=== PATIENT | male | born 1940 | race Caucasian/White ===

== ENCOUNTER 2020-08-06 11:10 | Day surgery (SDC) | payer MEDICARE ==
[2020-08-01 12:41] LABS: BASOPHILS # (AUTO) 0.1 X10'3 (0-0.2); BASOPHILS % (AUTO) 1.3 % (0-1); EOSINOPHILS # (AUTO) 0.2 X10'3 (0-0.9); EOSINOPHILS % (AUTO) 2.8 % (0-6); HEMATOCRIT 43.1 % (42.0-52.0); HEMOGLOBIN 14.2 g/dl (14.0-17.9); LYMPHOCYTES # (AUTO) 1.6 X10'3 (1.1-4.8); MEAN CORPUSCULAR HEMOGLOBIN 31.3 PG (27.0-31.0); MEAN CORPUSCULAR HGB CONC 32.9 g/dL (33.0-36.5); MEAN CORPUSCULAR VOLUME 95.2 FL (78-98); MONOCYTES # (AUTO) 0.7 X10'3 (0-0.9); MONOCYTES % (AUTO) 9.2 % (2-12); NEUTROPHILS % (AUTO) 65.7 % (42-75); PLATELET COUNT 427 X10'3 (140-440); RED BLOOD COUNT 4.53 X10'6 (4.70-6.10); RED CELL DISTRIBUTION WIDTH 13.5 % (11.5-14.5); WHITE BLOOD COUNT 7.5 X10'3 (4.5-11.0)
[2020-08-01 12:54] LABS: PARTIAL THROMBOPLASTIN TIME 28 SECONDS (22-32)
[2020-08-01 12:55] LABS: ALBUMIN 3.1 G/DL (3.4-5.0); ANION GAP 10 (8-16); BLOOD UREA NITROGEN 17 MG/DL (7-18); BUN/CREATININE RATIO 18.3 (5.4-32.0); CHLORIDE 104 MMOL/L (99-107); CREATININE 0.93 MG/DL (0.60-1.10); GLUCOSE 111 MG/DL (70-104); POTASSIUM 3.8 MMOL/L (3.5-5.1); SODIUM 140 MMOL/L (135-145); TOTAL CARBON DIOXIDE 25.7 MMOL/L (24-32); eGFR 78 ML/MIN
[2020-08-06] VITALS (10 sets, daily range): BP systolic 114–135; BP diastolic 65–79
[~2020-08-06] VITALS: Ht 172.7 cm; Wt 66.3 kg
[2020-08-06] MEDS ORDERED: LIDOcaine/PRILOcaine 5gm cream TP ONE (11:25)
[2020-08-06] MEDS ORDERED: LORazepam 0.5 MG tablet PO PRN (11:25)
[2020-08-06] MEDS ORDERED: diphenhydrAMINE 25mg capsule PO PRN (11:25)
[2020-08-06] MEDS ORDERED: normal saline 1,000 ML IV SCH (11:25)
[2020-08-06] MEDS ORDERED: NITR0.4T51 SL (11:38)
[2020-08-06] MEDS ORDERED: PHEN-824 PO (11:38)
[2020-08-06] MEDS ORDERED: SIMV-42 PO (11:38)
[2020-08-06] MEDS ORDERED: FLO0.4C PO (11:38)
[2020-08-06] MEDS ORDERED: DILT120C94 PO (11:38)
[2020-08-06] MEDS ORDERED: verapamil 2.5 mg/ml inj IV ONE (12:28)
[2020-08-06] MEDS ORDERED: LIDOcaine 1% (10mg/ml)w/preservative injection 20ml MDV ONE (12:29)
[2020-08-06] MEDS ORDERED: heparin 1,000unit/ml 10ml vial 10 ML ONE (12:29)
[2020-08-06] MEDS ORDERED: nitroGLYCERIN-Tridil 50MG/D5W 250 ML IV ONE (12:29)
[2020-08-06] MEDS ORDERED: iohexol 350MG/ML 100ml bottle IV ONE (12:29)
[2020-08-06] MEDS ORDERED: fentaNYL/PF 50MCG/1 ML 2ML syringe ONE (12:53)
[2020-08-06] MEDS ORDERED: midazolam 2 mg/2 ml injection ONE ×2 (12:53→13:11)
[2020-08-06] MEDS ORDERED: proCHLORperazine 10 MG/2 ml inj IV PRN (13:55)
[2020-08-06] MEDS ORDERED: HYDROcodone/acetaminophen 10/325mg tab PO PRN (13:55)
[2020-08-06] MEDS ORDERED: HYDROcodone/acetaminophen 5mg/325mg tablet PO PRN (13:55)
[2020-08-06] MEDS ORDERED: OXAZEpam 15mg capsule PO PRN (13:55)
[2020-08-06] MEDS ORDERED: ondansetron/PF 4mg/2ml inj IV PRN (13:55)
== END 2020-08-06 16:00 | disposition home or self-care (01) ==
LOC: SSTAY O 11:10
PROVIDERS: ATTEND Internal Medicine Interventional Cardiology
DX: R94.39 Abnormal result of other cardiovascular function study (principal); E78.5 Hyperlipidemia, unspecified; R07.9 Chest pain, unspecified; I11.9 Hypertensive heart disease without heart failure; Z79.01 Long term (current) use of anticoagulants; Z79.899 Other long term (current) drug therapy
CPT/HCPCS: 36415; 80048; 85025; 85610; 85730; 93005; 93458; C1760; C1769; C1894; J1644; J2001; J2250; J3010; J7030; Q0163; Q9967; 99152; A4620; A5120; A6258; J3490

== ENCOUNTER 2021-04-21 05:50 | Day surgery (SDC) | payer MEDICARE ==
[2021-04-14 15:51] LABS: BASOPHILS % (AUTO) 0.6 % (0-1); EOSINOPHILS # (AUTO) 0.1 X10'3 (0-0.9); EOSINOPHILS % (AUTO) 1.3 % (0-6); LYMPHOCYTES # (AUTO) 2.3 X10'3 (1.1-4.8); LYMPHOCYTES % (AUTO) 30.2 % (21-51); MEAN CORPUSCULAR HEMOGLOBIN 33.3 PG (27.0-31.0); MEAN CORPUSCULAR VOLUME 97.8 FL (78-98); MEAN PLATELET VOLUME 7.3 FL (7.4-10.4); MONOCYTES # (AUTO) 0.7 X10'3 (0-0.9); MONOCYTES % (AUTO) 8.7 % (2-12); NEUTROPHILS # (AUTO) 4.5 X10'3 (1.8-7.7); NEUTROPHILS % (AUTO) 59.2 % (42-75); PRE OP HEMATOCRIT 46.2 % (42.0-52.0); PRE OP HEMOGLOBIN 15.7 g/dL (14.0-17.9); PRE OP PLATELET COUNT 342 X10'3 (140-440); RED BLOOD COUNT 4.73 X10'6 (4.70-6.10); RED CELL DISTRIBUTION WIDTH 14.1 % (11.5-14.5)
[2021-04-14 16:12] LABS: ALBUMIN 3.3 G/DL (3.4-5.0); ALBUMIN/GLOBULIN RATIO 1.1 (1.1-1.5); ALKALINE PHOSPHATASE 82 IU/L (46-116); BLOOD UREA NITROGEN 28 MG/DL (7-18); CALCIUM 8.7 MG/DL (8.5-10.1); CHLORIDE 107 MMOL/L (99-107); PRE OP ALT 29 U/L (30-65); PRE OP ANION GAP 9 (8-16); PRE OP AST 15 U/L (10-37); PRE OP BILIRUB, TOTAL 0.7 MG/DL (0.0-1.0); PRE OP GLUCOSE 121 MG/DL (70-104); PRE OP SODIUM 142 MMOL/L (135-145); TOTAL CARBON DIOXIDE 25.8 MMOL/L (24-32); TOTAL PROTEIN 6.3 G/DL (6.4-8.2); eGFR 72 ML/MIN
[~2021-04-21] VITALS: Ht 172.7 cm; Wt 66.4 kg
[~2021-04-21 05:50] MED LIST: DILT120C94 PO; NITR0.4T51 SL; SIMV-42 PO; SOLI10TA2 PO; cefazolin/dext.iso 2gm/100ml IV ONE; famotidine 20mg tablet PO ONE; ringers solution, lacted 1,000 ML IV SCH
[2021-04-21 06:00] VITALS: BP 127/64
[2021-04-21] MEDS ORDERED: BUPIVAcaine/PF 2.5mg/ml (0.25%) 10ml vial ONE (06:41)
[2021-04-21] MEDS ORDERED: hydrALAZINE 20mg/ml inj. IV PRN (07:15)
[2021-04-21] MEDS ORDERED: morphine 4 MG/ML inj SYRINge IV PRN (07:15)
[2021-04-21] MEDS ORDERED: ringers solution, lacted 1,000 ML IV SCH (07:15)
[2021-04-21] MEDS ORDERED: morphine 2 MG/ML inj. syringe IV PRN (07:15)
[2021-04-21] MEDS ORDERED: labetalol 20mg/4ml (5mg/ml) syringe IV PRN (07:15)
[2021-04-21] MEDS ORDERED: ondansetron/PF 4mg/2ml inj IV PRN (07:15)
[2021-04-21] MEDS ORDERED: fentaNYL/PF 50MCG/1 ML 2ML syringe IV PRN ×2 (07:15)
[2021-04-21] MEDS ORDERED: LIDOcaine 0.5% (5mg/ml) 50ml vial ONE (07:19)
[2021-04-21] MEDS ORDERED: fentaNYL/PF 50MCG/1 ML 2ML syringe ONE (08:16)
[2021-04-21] MEDS ORDERED: midazolam 1 mg/ML 2ml injection ONE ×2 (08:17)
[2021-04-21 08:57] VITALS: BP 110/72
--- NOTE | 2021-04-21 08:57 | NUR ---
Received from OR via , accompanied by Anesthesiologist DR ROCK and report given by Anesthesiolgist. AWAKENS TO VOICE. VITALS STABLE. DRESSING DI. KEIKO PAIN. FINGERS COOL AND PINK.
[2021-04-21 09:07] VITALS: BP 120/74
[2021-04-21 09:17] VITALS: BP 114/80
[2021-04-21 09:27] VITALS: BP 115/72
--- NOTE | 2021-04-21 09:47 | NUR ---
AWAKE AND ORIENTED. VITALS STABLE. DRESSING DI. KEIKO PAIN. HOME WITH HIS AT THIS TIME.
== END 2021-04-21 09:47 | disposition home or self-care (01) ==
LOC: PAS 05:50
PROVIDERS: ATTEND Orthopaedic Surgery Hand Surgery
DX: G56.01 Carpal tunnel syndrome, right upper limb (principal); Z79.899 Other long term (current) drug therapy; M79.631 Pain in right forearm
CPT/HCPCS: 36415; 64721; 80053; 82948; 85025; 93005; J2001; J2250; J3010; J3490; U0003; U0005; Z7506; Z7512; A4215; J7120

== ENCOUNTER 2021-05-26 05:47 | Day surgery (SDC) | payer MEDICARE ==
[2021-05-19 14:27] LABS: BASOPHILS % (AUTO) 0.4 % (0-1); EOSINOPHILS # (AUTO) 0.1 X10'3 (0-0.9); EOSINOPHILS % (AUTO) 1.8 % (0-6); LYMPHOCYTES # (AUTO) 2.1 X10'3 (1.1-4.8); LYMPHOCYTES % (AUTO) 33.9 % (21-51); MEAN CORPUSCULAR HEMOGLOBIN 32.8 PG (27.0-31.0); MEAN CORPUSCULAR VOLUME 96.5 FL (78-98); MEAN PLATELET VOLUME 7.2 FL (7.4-10.4); MONOCYTES # (AUTO) 0.6 X10'3 (0-0.9); MONOCYTES % (AUTO) 10.3 % (2-12); NEUTROPHILS # (AUTO) 3.4 X10'3 (1.8-7.7); NEUTROPHILS % (AUTO) 53.6 % (42-75); PRE OP HEMATOCRIT 46.9 % (42.0-52.0); PRE OP PLATELET COUNT 365 X10'3 (140-440); RED BLOOD COUNT 4.86 X10'6 (4.70-6.10); RED CELL DISTRIBUTION WIDTH 13.7 % (11.5-14.5)
[2021-05-19 14:37] LABS: ALBUMIN 3.3 G/DL (3.4-5.0); ALBUMIN/GLOBULIN RATIO 1.1 (1.1-1.5); ALKALINE PHOSPHATASE 70 IU/L (46-116); BLOOD UREA NITROGEN 23 MG/DL (7-18); BUN/CREATININE RATIO 24.5 (5.4-32.0); CALCIUM 8.3 MG/DL (8.5-10.1); CHLORIDE 107 MMOL/L (99-107); CREATININE 0.94 MG/DL (0.60-1.10); PRE OP ALT 32 U/L (30-65); PRE OP ANION GAP 9 (8-16); PRE OP AST 12 U/L (10-37); PRE OP BILIRUB, TOTAL 0.5 MG/DL (0.0-1.0); PRE OP GLUCOSE 94 MG/DL (70-104); PRE OP POTASSIUM 3.9 MMOL/L (3.4-5.1); PRE OP SODIUM 140 MMOL/L (135-145); TOTAL CARBON DIOXIDE 23.8 MMOL/L (24-32); TOTAL PROTEIN 6.4 G/DL (6.4-8.2); eGFR 77 ML/MIN
[~2021-05-26] VITALS: Ht 172.7 cm; Wt 66.6 kg
[2021-05-26] VITALS (7 sets, daily range): BP systolic 97–125; BP diastolic 65–85
[~2021-05-26 05:47] MED LIST changes: +ceFAZolin 2gm in dextrose, iso 50 ML IV ONE; -cefazolin/dext.iso 2gm/100ml IV ONE
[2021-05-26] MEDS ORDERED: BUPIVAcaine/PF 2.5 mg/ml (0.25%) 30ml vial ONE (07:06)
[2021-05-26] MEDS ORDERED: LIDOcaine 1% 30ml preserv. free vial ONE (07:20)
[2021-05-26] MEDS ORDERED: midazolam 1 mg/ML 2ml injection ONE (07:56)
[2021-05-26] MEDS ORDERED: fentaNYL/PF 50MCG/1 ML 2ML syringe ONE (07:56)
[2021-05-26] MEDS ORDERED: ketorolac trometh. 30mg/ml inj. ONE (08:13)
--- NOTE | 2021-05-26 08:25 | NUR ---
PT ARRIVED TO RECOVERY ROOM VIA GURNEY ACCOMPANIED BY DR. LOMBARDI -REPORT GIVEN, PT SLEEPY, DENIES PAIN, VSS, LEFT HAND-DSRG CDI, FINGERS PINK, WARM, CSM-INTACT. ICE TO LEFT EXTREMITY. PIV 20G TO RFA-LR RUNNING AT 100ML/HR
--- NOTE | 2021-05-26 09:45 | NUR ---
ALL DISCHARGE CRITERIA HAS BEEN MET. VSS, DENIES PAIN, DRSG TO LEFT WRIST-CDI, CSM-INTACT, VOIDING AND ABLE TO SAFELY AMBULATE AND TRANSFER SELF. PIV TAKEN OUT WITHOUT ANY COMPLICATIONS. ALL DISCHARGE INSTRUCTIONS COVERED WITH PATIENT AND ALL QUESTIONS ANSWERED. PATIENT TAKEN OUT VIA WHEELCHAIR WITH ALL BELONGINGS TO PERSONAL VEHICLE WHERE FAMILY/FRIEND DROVE PATIENT HOME.
== END 2021-05-26 09:45 | disposition home or self-care (01) ==
LOC: PAS 05:47
PROVIDERS: ATTEND Orthopaedic Surgery Hand Surgery
DX: G56.02 Carpal tunnel syndrome, left upper limb (principal); I10 Essential (primary) hypertension; N40.0 Benign prostatic hyperplasia without lower urinary tract symptoms; M19.90 Unspecified osteoarthritis, unspecified site; Z79.899 Other long term (current) drug therapy; Z20.822 Contact with and (suspected) exposure to COVID-19; Z98.890 Other specified postprocedural states; Z87.891 Personal history of nicotine dependence; Z72.89 Other problems related to lifestyle
CPT/HCPCS: 36415; 64721; 80053; 82948; 85025; J1885; J2001; J2250; J3010; J3490; U0003; U0005; Z7506; Z7512; A4215; J7120

== ENCOUNTER 2023-10-25 15:06 | Emergency (ER) | payer MEDICARE ==
[~2023-10-25] VITALS: Ht 172.7 cm; Wt 66.8 kg
[~2023-10-25 15:06] MED LIST changes: -ceFAZolin 2gm in dextrose, iso 50 ML IV ONE; -famotidine 20mg tablet PO ONE; -ringers solution, lacted 1,000 ML IV SCH
[2023-10-25 15:13] VITALS: BP 112/84; PULSE 89; RESP 18; TEMP 97.8; O2SAT 98
== END 2023-10-25 15:42 | disposition home or self-care (01) ==
LOC: ER 15:07
DX: S40.021D Contusion of right upper arm, subsequent encounter (principal); Z79.899 Other long term (current) drug therapy; X58.XXXD Exposure to other specified factors, subsequent encounter
CPT/HCPCS: 99282